=== PATIENT | female | born 1960 | race African-American/Black ===

== ENCOUNTER 2020-09-12 12:34 | Outpatient (CLI) | payer BC | END 2020-09-12 12:35 | disposition home or self-care (01) | LOC: BICMAMMO 12:34 | PROVIDERS: ATTEND Family Medicine | DX: Z12.31 Encounter for screening mammogram for malignant neoplasm of breast (principal); Z91.89 Other specified personal risk factors, not elsewhere classified | CPT/HCPCS: 77063; 77067 ==

== ENCOUNTER 2021-01-03 10:42 | Outpatient (CLI) | payer OTHER | END 2021-01-03 10:43 | disposition home or self-care (01) | LOC: TBSIIMAG 10:42 | PROVIDERS: ATTEND Family Medicine | DX: M54.50 Low back pain, unspecified (principal); M48.061 Spinal stenosis, lumbar region without neurogenic claudication; M48.07 Spinal stenosis, lumbosacral region | CPT/HCPCS: 72148 ==

== ENCOUNTER 2023-05-10 11:12 | Inpatient (IN) | payer SELFPAY ==
[2023-05-10] MEDS ORDERED: Acetaminophen 325 MG TAB PO PRN (15:25)
[2023-05-10] MEDS ORDERED: Ondansetron ODT 4 MG TAB PO PRN (15:25)
[2023-05-10] MEDS ORDERED: Ondansetron PF 4 MG/2 ML Vial IVP PRN (15:25)
[2023-05-10] MEDS ORDERED: Calcium Carbonate 500 MG ChewTAB PO PRN (15:25)
[2023-05-10] MEDS ORDERED: Communication Order-Pharmacy FS SCH (15:27)
[2023-05-10] MEDS ORDERED: Nitroglycerin 0.4 MG TAB (25 Tab Bottle) SL PRN (15:28)
[2023-05-10] MEDS ORDERED: dilTIAZem 125 MG in Sodium Chloride 0.9% 100 ML IVPB SCH (15:30)
[2023-05-10 15:55] VITALS: BMI 21.2
[2023-05-10] MEDS: Metoprolol Tartrate 25 MG TAB PO SCH ×2 (16:32→21:20)
[2023-05-10] MEDS: Aspirin Chewable 81 MG TAB PO SCH (16:43)
[2023-05-10] MEDS: Magnesium 2 GM/50 ML(in water) 2 GM in Premix 1 BAG IVPB SCH (16:44)
[2023-05-10] MEDS: dilTIAZem 125 MG, Admixture Fee 1 EACH in Sodium Chloride 0.9% 100 ML IVPB SCH (16:44)
[2023-05-10] MEDS: Enoxaparin 60 MG (0.6 mL) SYRINGE SC SCH (16:44)
[2023-05-10] MEDS: Ketorolac Tromethamine 30 MG (1 mL) VIAL IVP SCH (16:44)
[2023-05-10] MEDS: Metoprolol Tartrate 5 MG (5 mL) VIAL IVP SCH (16:57)
[2023-05-10] MEDS: Metoprolol Tartrate 5 MG (5 mL) VIAL ONE (16:57)
[2023-05-10] MEDS: FLU VACC QS2023-24(6MOS UP)/PF 60 MCG/0.5 ML SYRINGE IM ONE (17:02)
[2023-05-10 17:21] LABS: Troponin I 0.022 ng/mL (< 0.028)
[2023-05-10] MEDS ORDERED: dilTIAZem 30 MG TAB PO PRN (17:44)
[2023-05-10] MEDS ORDERED: HYDROcodone/Acetaminophen 5/325 mg Tablet PO PRN (17:49)
[2023-05-10] MEDS: lamoTRIgine 100 MG TAB PO SCH (18:36)
[2023-05-10] MEDS: Venlafaxine HCl XR 150 MG CAP PO SCH (18:37)
[2023-05-10] MEDS: Famotidine 20 MG TAB PO SCH (21:20)
[2023-05-10] MEDS: Ibuprofen 600 MG TAB PO SCH (21:21)
[2023-05-10] MEDS: Senokot S 8.6-50 MG TAB PO SCH (21:24)
[2023-05-11] MEDS: Enoxaparin 60 MG (0.6 mL) SYRINGE SC SCH (04:06)
[2023-05-11 04:39] LABS: #Monocytes 0.9 thou/uL (0.11-0.59); #Neutrophils 6.4 thou/uL (1.40-6.50); %Basophils 0.2 % (0.0-1.0); %Lymphocytes 28.1 % (21.0-51.0); %Monocytes 8.5 % (0.0-10.0); %Neutrophils 62.9 % (42.0-75.0); Hemoglobin 10.6 g/dL (12.0-16.0); Mean Corpuscular HGB CONC 33.1 g/dL (32.0-36.0); Mean Corpuscular Hemoglobin 32.9 pg (27.0-31.0); Mean Corpuscular Volume 99.4 fl (78.0-98.0); Mean Platelet Volume 10.3 fL (7.4-10.4); Platelet Count 202 10x3/uL (130-400); RBC Distribution Width 13.2 % (11.5-14.5); Red Blood Cell (RBC) Count 3.22 mill/uL (4.20-5.40); White Blood Cell (WBC) Count 10.1 10x3/uL (4.8-10.8)
[2023-05-11] MEDS ORDERED: LAMOTRIGINE 200 MG PO SCH (09:00)
[2023-05-11 09:22] LABS: Albumin 3.5 g/dL (3.4-4.8)
[2023-05-11 09:23] LABS: Chloride 109 mmol/L (98-107); Potassium 3.9 mmol/L (3.5-5.1); Sodium 139 mmol/L (136-145)
[2023-05-11 09:24] LABS: Calcium 8.5 mg/dL (7.8-10.44)
[2023-05-11] MEDS ORDERED: Regadenoson 0.4 MG/5 ML SYRINGE ONE (09:24)
[2023-05-11 09:25] LABS: Globulin 3.5 g/dL (2.4-3.5); Glucose 84 mg/dL (80-115); Triglycerides 77 mg/dL (Less than 150)
[2023-05-11 09:26] LABS: Anion Gap 18 mmol/L (10-20); Bilirubin, Total 0.5 mg/dL (0.2-1.2); Carbon Dioxide 16 mmol/L (23-31)
[2023-05-11 09:28] LABS: Alkaline Phosphatase 93 U/L (40-110); Calc. Creatinine Clearance 52 mL/min (70-130); Estimated GFR 61
[2023-05-11 09:29] LABS: BUN (Urea Nitrogen) 21 mg/dL (9.8-20.1)
[2023-05-11 09:30] LABS: AST (SGOT) 15 U/L (5-34); Cholesterol 148 mg/dl (< 200 Desired); HDL Cholesterol 37 mg/dL (>60 Neg Risk); LDL Cholesterol, Calculated 96 mg/dL; Magnesium 2.7 mg/dL (1.6-2.6)
[2023-05-11 09:31] LABS: ALT (SGPT) 17 U/L (8-55)
[2023-05-11] MEDS: Flecainide 50 MG TAB PO SCH (10:55)
[2023-05-11] MEDS: Venlafaxine HCl XR 150 MG CAP PO SCH (10:55)
[2023-05-11] MEDS ORDERED: Enoxaparin 60 MG (0.6 mL) SYRINGE SC SCH (16:00)
[2023-05-11] MEDS: Atorvastatin Calcium 20 MG TAB PO SCH (22:12)
[2023-05-12 07:39] VITALS: BP 106/64; TEMP 98.1
[2023-05-12] MEDS: Apixaban 5 MG TAB PO SCH (08:21)
== END 2023-05-12 10:37 | disposition home or self-care (01) | DRG 310 ==
LOC: 2NO 15:15 → 2SW 05-11 23:19
PROVIDERS: ADMIT Internal Medicine; ATTEND Internal Medicine
DX: I48.0 Paroxysmal atrial fibrillation (principal); I05.2 Rheumatic mitral stenosis with insufficiency; R91.1 Solitary pulmonary nodule; F41.9 Anxiety disorder, unspecified; F32.A Depression, unspecified; N18.30 Chronic kidney disease, stage 3 unspecified; Z79.899 Other long term (current) drug therapy; Z90.49 Acquired absence of other specified parts of digestive tract; Z98.890 Other specified postprocedural states; Z82.49 Family history of ischemic heart disease and other diseases of the circulatory system; F17.210 Nicotine dependence, cigarettes, uncomplicated; J43.9 Emphysema, unspecified; Z79.01 Long term (current) use of anticoagulants
CPT/HCPCS: 36415; 78452; 80053; 80061; 83735; 84443; 85025; 93005; 93010; 93017; 93306; 94760; A9502; J1650; J1885; J2785; J3475; J3490

== ENCOUNTER 2023-12-19 16:03 | Inpatient (IN) | payer BC ==
[2023-12-19] MEDS ORDERED: Acetaminophen 325 MG TAB PO PRN (17:41)
[2023-12-19] MEDS ORDERED: Calcium Carbonate 500 MG ChewTAB PO PRN (17:41)
[2023-12-19] MEDS ORDERED: Ondansetron PF 4 MG/2 ML Vial IVP PRN (17:41)
[2023-12-19] MEDS ORDERED: Senokot S 8.6-50 MG TAB PO PRN (17:41)
[2023-12-19] MEDS: Digoxin 0.5 MG/2 ML AMP SLOW IVP SCH ×2 (17:52→19:55)
[2023-12-19] MEDS: Albumin 25% 25 GM (100 mL) BOT IVPB SCH (17:53)
[2023-12-19] MEDS: Enoxaparin 60 MG (0.6 mL) SYRINGE SC SCH (18:27)
[2023-12-19 18:50] LABS: Magnesium 1.9 mg/dL (1.6-2.6)
[2023-12-19 18:54] LABS: Troponin I Less than 0.010 ng/mL (< 0.028)
[2023-12-19] MEDS: Sodium Chloride 0.9% 500 ML IV SCH (19:46)
[2023-12-19] MEDS: Magnesium 2 GM/50 ML(in water) 2 GM in Premix 1 BAG IVPB SCH (19:54)
[2023-12-19] MEDS: Amiodarone 450 MG in Dextrose 5% in Water 250 ML IVPB SCH (19:55)
[2023-12-19] MEDS ORDERED: Ipratropium/Albuterol 3 ML NEB NEB PRN (21:46)
[2023-12-20 04:28] LABS: #Basophils 0.04 10x3/uL (0.0-0.2); #Eosinophils Less than 0.03 10x3/uL (0.0-0.7); %Basophils 0.4 % (0.0-1.0); %Eosinophils 0.2 % (0.0-10.0); %Lymphocytes 25.9 % (21.0-51.0); %Neutrophils 66.9 % (42.0-75.0); Hematocrit 29.5 % (36.0-47.0); Hemoglobin 9.6 g/dL (12.0-16.0); Mean Corpuscular HGB CONC 32.5 g/dL (32.0-36.0); Mean Corpuscular Hemoglobin 33.1 pg (27.0-31.0); Mean Corpuscular Volume 101.7 fL (78.0-98.0); Mean Platelet Volume 10.3 fL (7.4-10.4); Platelet Count 298 10x3/uL (130-400); RBC Distribution Width 14.1 % (11.5-14.5)
[2023-12-20 04:38] LABS: ALT (SGPT) 56 U/L (8-55); AST (SGOT) 65 U/L (5-34); Albumin 3.3 g/dL (3.4-4.8); Alkaline Phosphatase 105 U/L (40-110); Anion Gap 14 mmol/L (10-20); BUN (Urea Nitrogen) 29 mg/dL (9.8-20.1); Bilirubin, Total 0.5 mg/dL (0.2-1.2); Calc. Creatinine Clearance 47 mL/min (70-130); Calcium 8.6 mg/dL (7.8-10.44); Carbon Dioxide 21 mmol/L (23-31); Chloride 105 mmol/L (98-107); Estimated GFR 55; Globulin 3.5 g/dL (2.4-3.5); Glucose 106 mg/dL (80-115); Magnesium 2.5 mg/dL (1.6-2.6); Potassium 3.8 mmol/L (3.5-5.1); Protein, Total 6.8 g/dL (5.8-8.1); Sodium 136 mmol/L (136-145)
[2023-12-20] MEDS: Mometasone 200 MCG/Formoterol 5 MCG 120 PUFF INHALER INH SCH (09:16)
[2023-12-20] MEDS: Ipratropium/Albuterol 3 ML NEB NEB SCH (09:21)
[2023-12-20] MEDS: Albumin 25% 25 GM (100 mL) BOT IVPB SCH ×2 (09:57→12:26)
[2023-12-20] MEDS: methylPREDNISolone Sod Succ 40 MG VIAL IVP SCH ×2 (09:58→15:53)
[2023-12-20] MEDS: Flecainide 50 MG TAB PO SCH (09:58)
[2023-12-20] MEDS: Venlafaxine HCl XR 150 MG CAP PO SCH (09:58)
[2023-12-20] MEDS: dilTIAZem 30 MG TAB PO SCH (17:55)
[2023-12-20] MEDS: Enoxaparin 60 MG (0.6 mL) SYRINGE SC SCH (20:32)
[2023-12-21] MEDS: Furosemide 20 MG (2 mL) VIAL SLOW IVP SCH ×4 (01:36→20:58)
[2023-12-21 01:43] LABS: #Basophils Less than 0.03 10x3/uL (0.0-0.2); #Eosinophils Less than 0.03 10x3/uL (0.0-0.7); %Basophils 0.1 % (0.0-1.0); %Lymphocytes 8.4 % (21.0-51.0); %Monocytes 1.7 % (0.0-10.0); %Neutrophils 89.1 % (42.0-75.0); Hematocrit 30.6 % (36.0-47.0); Hemoglobin 10.3 g/dL (12.0-16.0); Mean Corpuscular HGB CONC 33.7 g/dL (32.0-36.0); Mean Corpuscular Volume 98.1 fL (78.0-98.0); Mean Platelet Volume 10.2 fL (7.4-10.4); Platelet Count 286 10x3/uL (130-400); RBC Distribution Width 14.3 % (11.5-14.5); Red Blood Cell (RBC) Count 3.12 mill/uL (4.20-5.40)
[2023-12-21] MEDS: Aspirin 325 MG TAB PO SCH (01:48)
[2023-12-21 02:00] LABS: Actual Bicarbonate (HCO3a) 24.1 mEq/L (22-28); Base Excess (BEa) -0.5 mEq/L (-2.0 to +3.0); CO2 Tension 39.5 mmHg (35.0-45.0); Calcium, Ionized (arterial) 1.21 mmol/L (1.12-1.30); Carboxyhemoglobin (COHb) 0.5 gm% (0.0-3.0); Hematocrit-ABG 45 % (36.0-47.0); Hemoglobin (Hb) 15.4 g/dL (12.0-16.0); O2 Tension (PaO2), arterial 93.8 mmHg (> 80.0); Potassium - ABG Lab 4.05 mmol/L (3.70-5.30); pH, Arterial 7.403 (7.35-7.45)
[2023-12-21 02:03] LABS: Puncture Site Right Radial artery
[2023-12-21 02:28] LABS: Troponin I Less than 0.010 ng/mL (< 0.028)
[2023-12-21] MEDS: Magnesium 2 GM/50 ML(in water) 2 GM in Premix 1 BAG IVPB SCH (02:49)
[2023-12-21 02:55] LABS: ALT (SGPT) 797 U/L (8-55); AST (SGOT) 1052 U/L (5-34); Albumin 4.7 g/dL (3.4-4.8); Alkaline Phosphatase 117 U/L (40-110); Anion Gap 18 mmol/L (10-20); BUN (Urea Nitrogen) 38 mg/dL (9.8-20.1); Bilirubin, Total 1.3 mg/dL (0.2-1.2); Calc. Creatinine Clearance 37 mL/min (70-130); Calcium 9.1 mg/dL (7.8-10.44); Carbon Dioxide 17 mmol/L (23-31); Chloride 107 mmol/L (98-107); Estimated GFR 40; Globulin 3.1 g/dL (2.4-3.5); Glucose 148 mg/dL (80-115); Potassium 4.5 mmol/L (3.5-5.1); Protein, Total 7.8 g/dL (5.8-8.1); Sodium 137 mmol/L (136-145)
[2023-12-21] MEDS: Mometasone 200 MCG/Formoterol 5 MCG 120 PUFF INHALER INH SCH (03:08)
[2023-12-21] MEDS ORDERED: Furosemide 100 MG in Sodium Chloride 0.9% 90 ML IVPB SCH (08:30)
[2023-12-21] MEDS: Midodrine HCl 5 MG TAB PO SCH ×3 (08:50→16:26)
[2023-12-21] MEDS: FLU (Fluarix Triv) TS24-25(6MOS UP)/PF 45 MCG/0.5 ML Syringe IM ONE (11:14)
[2023-12-21] MEDS: Albumin 25% 25 GM (100 mL) BOT IVPB SCH ×2 (13:19→19:46)
[2023-12-22 04:06] LABS: #Basophils 0.03 10x3/uL (0.0-0.2); #Eosinophils Less than 0.03 10x3/uL (0.0-0.7); %Basophils 0.2 % (0.0-1.0); %Lymphocytes 4.4 % (21.0-51.0); %Monocytes 2.1 % (0.0-10.0); %Neutrophils 92.4 % (42.0-75.0); Hematocrit 25.4 % (36.0-47.0); Hemoglobin 8.5 g/dL (12.0-16.0); Mean Corpuscular HGB CONC 33.5 g/dL (32.0-36.0); Mean Corpuscular Hemoglobin 33.1 pg (27.0-31.0); Mean Corpuscular Volume 98.8 fL (78.0-98.0); Mean Platelet Volume 10.8 fL (7.4-10.4); Platelet Count 257 10x3/uL (130-400); RBC Distribution Width 14.6 % (11.5-14.5); Red Blood Cell (RBC) Count 2.57 mill/uL (4.20-5.40)
[2023-12-22 04:51] LABS: ALT (SGPT) 677 U/L (8-55); AST (SGOT) 641 U/L (5-34); Albumin 4.9 g/dL (3.4-4.8); Alkaline Phosphatase 82 U/L (40-110); Anion Gap 16 mmol/L (10-20); BUN (Urea Nitrogen) 65 mg/dL (9.8-20.1); Bilirubin, Total 0.5 mg/dL (0.2-1.2); Calc. Creatinine Clearance 28 mL/min (70-130); Calcium 9.1 mg/dL (7.8-10.44); Carbon Dioxide 19 mmol/L (23-31); Chloride 105 mmol/L (98-107); Estimated GFR 29; Globulin 2.3 g/dL (2.4-3.5); Glucose 141 mg/dL (80-115); Potassium 3.3 mmol/L (3.5-5.1); Protein, Total 7.2 g/dL (5.8-8.1); Sodium 137 mmol/L (136-145)
[2023-12-22 05:59] VITALS: BMI 20.7
[2023-12-22] MEDS: Furosemide 20 MG (2 mL) VIAL SLOW IVP SCH (09:39)
[2023-12-22] MEDS: Potassium Chloride 20 MEQ TAB PO SCH (11:37)
[2023-12-22] MEDS: Albumin 25% 25 GM (100 mL) BOT IVPB SCH (17:04)
[2023-12-22] MEDS: methylPREDNISolone Sod Succ 40 MG VIAL IVP SCH (17:05)
[2023-12-23 02:52] VITALS: TEMP 97.6
[2023-12-23 04:12] VITALS: BP 97/68
[2023-12-23 05:07] LABS: ALT (SGPT) 475 U/L (8-55); AST (SGOT) 279 U/L (5-34); Albumin 5.3 g/dL (3.4-4.8); Alkaline Phosphatase 72 U/L (40-110); Anion Gap 16 mmol/L (10-20); BUN (Urea Nitrogen) 69 mg/dL (9.8-20.1); Bilirubin, Total 0.7 mg/dL (0.2-1.2); Calc. Creatinine Clearance 33 mL/min (70-130); Calcium 9.4 mg/dL (7.8-10.44); Carbon Dioxide 20 mmol/L (23-31); Chloride 109 mmol/L (98-107); Estimated GFR 37; Globulin 2.1 g/dL (2.4-3.5); Glucose 132 mg/dL (80-115); Potassium 3.4 mmol/L (3.5-5.1); Protein, Total 7.4 g/dL (5.8-8.1); Sodium 142 mmol/L (136-145)
[2023-12-23] MEDS ORDERED: Potassium Chloride 20 MEQ TAB PO SCH (08:00)
[2023-12-23] MEDS ORDERED: Enoxaparin 60 MG (0.6 mL) SYRINGE SC SCH (09:00)
== END 2023-12-23 04:22 | disposition short-term general hospital (02) | DRG 291 ==
LOC: 2SW 16:36
PROVIDERS: ADMIT Internal Medicine; ATTEND Family Medicine
PROC: 4A033R1 Measurement of Arterial Saturation, Peripheral, Percutaneous Approach (ICD-10-PCS; principal; 2023-12-21)
DX: I11.0 Hypertensive heart disease with heart failure (principal); I50.31 Acute diastolic (congestive) heart failure; J96.01 Acute respiratory failure with hypoxia; N17.9 Acute kidney failure, unspecified; J44.1 Chronic obstructive pulmonary disease with (acute) exacerbation; I95.9 Hypotension, unspecified; R74.01 Elevation of levels of liver transaminase levels; I48.0 Paroxysmal atrial fibrillation; F17.210 Nicotine dependence, cigarettes, uncomplicated; Z71.6 Tobacco abuse counseling; Z79.899 Other long term (current) drug therapy; Z90.49 Acquired absence of other specified parts of digestive tract
CPT/HCPCS: 36415; 36600; 71045; 80053; 80181; 82805; 83735; 83880; 84484; 85025; 90656; 93005; 93010; 93306; 93798; 94640; 94664; J0282; J1160; J1650; J1940; J2919; J3475; J7030; J7070; J7620; P9047